=== PATIENT | female | born 1985 ===

== ENCOUNTER 2018-03-24 13:00 | Inpatient (IN) | payer OTHER ==
[~2018-03-24] VITALS: Ht 152.4 cm; Wt 59.0 kg
[2018-04-06] MEDS ORDERED: PRENATAL TABLE1 EACH (13:18)
== END 2018-04-09 12:33 | DRG 775 ==
LOC: SURG-SUITE 04-06 12:24 → LDR 04-06 12:24 → SURG-SUITE 04-07 18:23 → OB/GYN 04-19 13:00
PROC: 10E0XZZ Delivery of Products of Conception, External Approach (ICD-10-PCS; principal; 2018-04-07)
PROC: 0DQR0ZZ Repair Anal Sphincter, Open Approach (ICD-10-PCS; 2018-04-07)
PROC: 10907ZC Drainage of Amniotic Fluid, Therapeutic from Products of Conception, Via Natural or Artificial Opening (ICD-10-PCS; 2018-04-07)
PROC: 3E0P7VZ Introduction of Hormone into Female Reproductive, Via Natural or Artificial Opening (ICD-10-PCS; 2018-04-07)
PROC: 4A1HXCZ Monitoring of Products of Conception, Cardiac Rate, External Approach (ICD-10-PCS; 2018-04-07)
DX: O70.21 Third degree perineal laceration during delivery, IIIa (principal); O41.03X0 Oligohydramnios, third trimester, not applicable or unspecified; Z3A.38 38 weeks gestation of pregnancy; Z37.0 Single live birth